=== PATIENT | male | born 1980 | race Caucasian/White ===

== ENCOUNTER 2019-08-20 20:10 | Emergency (ER) | payer BC ==
[~2019-08-20] VITALS: Ht 193 cm; Wt 133.8 kg
--- NOTE | 2019-08-20 20:25 | NUR ---
Pt ambulating with steady gait. A&O x4. c/o sternal chest pain that started about 1630 per patient. Denies radiating anywhere else. Patient states that hes had this before and wanted to get checked this time. Patient states pain is intermittent with burning feeling but short in duration. Breathing even and unlabored. Speech is clear and able to make needs known follow commands/ Denies any / GI distress. family at bedside.
--- NOTE | 2019-08-20 20:30 | NUR ---
Dr. Monteiro at bedside for MSE
[2019-08-20] MEDS ORDERED: ASPIRIN 325 MG TABLET PO ONE (21:00)
[2019-08-20 21:05] LABS: CREATININE 1.1 mg/dL (0.6-1.3)
[2019-08-20 21:10] LABS: BASOPHILS % (AUTO) 0.4 % (0.0-2.0); EOSINOPHILS # (AUTO) 0.1 K/uL (0.0-0.7); EOSINOPHILS % (AUTO) 1.5 % (0.0-7.0); HEMATOCRIT 41.8 % (36.7-47.1); HEMOGLOBIN 14.4 g/dL (12.5-16.3); LYMPHOCYTES # (AUTO) 3.3 K/uL (20.0-40.0); LYMPHOCYTES % (AUTO) 45.9 % (20.5-51.5); MEAN CORPUSCULAR HEMOGLOBIN 29.5 uug (23.8-33.4); MEAN CORPUSCULAR HGB CONC 34 g/dL (32.5-36.3); MEAN CORPUSCULAR VOLUME 85.6 fL (73.0-96.2); MONOCYTES # (AUTO) 0.5 K/uL (2.0-10.0); MONOCYTES % (AUTO) 7.3 % (0.0-11.0); NEUTROPHILS # (AUTO) 3.2 K/uL (1.8-8.9); NEUTROPHILS % (AUTO) 44.9 % (38.5-71.5); PLATELET COUNT (AUTO) 254 K/uL (152-348); RED BLOOD CELL COUNT(AUTO) 4.88 MIL/uL (4.06-5.63); WHITE BLOOD COUNT (AUTO) 7.2 K/uL (3.6-10.2)
[2019-08-20] MEDS ORDERED: ASPIRIN 325 MG TABLET ONE (21:10)
[2019-08-20 21:16] LABS: BILIRUBIN,DIRECT 0.1 mg/dL (0.0-0.2); BILIRUBIN,TOTAL 0.3 mg/dL (0.2-1.0); TOTAL PROTEIN, SERUM 7.5 g/dL (6.4-8.2)
--- NOTE | 2019-08-20 22:13 | NUR ---
Patient in bed AA&O x4. at bedside. Breathing even and unlabored. Denies any chest pain / discomfort at this time. Breathing even and unlabored. NAD noted
--- NOTE | 2019-08-21 00:19 | NUR ---
Patient discharged to home in stable conditon. Written and verbal after care instructions given. Patient verbalizes understanding of instructions. Patient ambulating with steady gait
[2019-08-21 00:27] VITALS: BP 133/72
== END 2019-08-21 00:19 | disposition home or self-care (01) ==
LOC: ER 20:10
DX: R07.89 Other chest pain (principal); E78.5 Hyperlipidemia, unspecified; E78.00 Pure hypercholesterolemia, unspecified; K21.9 Gastro-esophageal reflux disease without esophagitis; F12.10 Cannabis abuse, uncomplicated
CPT/HCPCS: 36415; 70030-TC; 71045; 85025; 93005; A4663